=== PATIENT | female | born 1965 ===

== ENCOUNTER → 2022-01-09 | Outpatient (CLI) | payer SELFPAY | END | disposition home or self-care (01) | LOC: LAB SHORT 12:20 → LAB 12:20 | DX: N39.0 Urinary tract infection, site not specified (principal) | CPT/HCPCS: 87086 ==

== ENCOUNTER 2023-01-22 09:27 | Day surgery (SDC) | payer BC ==
[2023-01-22] VITALS (14 sets, daily range): BP systolic 114–142; BP diastolic 74–96
[~2023-01-22] VITALS: Ht 157.5 cm; Wt 74.6 kg
[~2023-01-22 09:27] MED LIST: ALBU2.5V5 INH; CLIMARA1 EACH TOP; PROG100 PO
--- NOTE | 2023-01-22 10:02 | NUR ---
Ambulatory in Day Surgery. History, Chart, Medications and Allergies reviewed before start of procedure. Lungs clear T/O to Auscultation. Patient confirms NPO status and agrees with scheduled surgery. Pre-Op teaching done. Pt verbalizes understanding. Patient States Post-Procedure ride home has been arranged. PT BELONG[facility] PLACED [facility]AFEK[facility].
--- NOTE | 2023-01-22 14:47 | NUR ---
PT EXPERIENCED NAUSEA AFTER IV REMOVAL, IV ZOFRAN CHANGED TO PO
--- NOTE | 2023-01-22 15:15 | NUR ---
Discharge instructions reviewed with patient. Patient verbalizes understanding. Copy given to patient to take home. Dressing to procedure site clean, dry, intact with no visible drainage. Patient States Post-Procedure ride home has been arranged. Discharged via wheelchair to private car for ride home.
== END 2023-01-22 15:10 | disposition home or self-care (01) ==
LOC: ORSCMMR 09:27 → ORD 11:00 → ORSCMMR 11:00
PROVIDERS: Surgery
PROC: 0FT44ZZ Resection of Gallbladder, Percutaneous Endoscopic Approach (ICD-10-PCS; principal; 2023-01-22 11:00)
PROC: BF031ZZ Plain Radiography of Gallbladder and Bile Ducts using Low Osmolar Contrast (ICD-10-PCS; principal; 2023-01-22 11:00)
DX: K80.10 Calculus of gallbladder with chronic cholecystitis without obstruction (principal); K66.0 Peritoneal adhesions (postprocedural) (postinfection); J45.909 Unspecified asthma, uncomplicated; K21.9 Gastro-esophageal reflux disease without esophagitis; Z79.899 Other long term (current) drug therapy; K76.0 Fatty (change of) liver, not elsewhere classified
CPT/HCPCS: 88304; A9270; J0694; J1100; J1170; J2250; J2371; J2405; J2704; J3010; J7120

== ENCOUNTER → 2023-06-14 | Outpatient (CLI) | payer BC | LOC: LAB 17:31 → LAB SHORT 17:31 | DX: R30.0 Dysuria (principal) | CPT/HCPCS: 87077; 87086; 87186 ==